=== PATIENT | female | born 1995 | race Caucasian/White ===

== ENCOUNTER → 2018-11-15 | Outpatient (CLI) | payer BC ==
--- NOTE | 2018-11-15 17:40 | REP ---
Clinical: Epigastric and abdominal pain. Technique: Upright view of the chest with supine and upright views of the abdomen and pelvis. Findings: Frontal upright view of the chest demonstrates no acute cardiopulmonary process or free air below the diaphragm to suspect pneumoperitoneum. Supine and upright views of the abdomen and pelvis demonstrate nonspecific bowel gas pattern without obstruction or perforation. No organomegaly. No abnormal calcifications. Skeletal structures normal for age. Impression: Nonspecific bowel gas pattern. Electronically Signed by Juan Daniel Pires MD 11/15/2018 05:31 P
== END ==
LOC: M WUC 16:13
PROVIDERS: ATTEND Physician Assistant
DX: K59.00 Constipation, unspecified (principal)

== ENCOUNTER → 2019-03-16 | Outpatient (REF) | payer BC | LOC: M SFHCCLAY 14:37 | PROVIDERS: ATTEND Family Medicine | DX: N30.90 Cystitis, unspecified without hematuria (principal); R30.0 Dysuria ==

== ENCOUNTER → 2019-08-25 | Outpatient (REF) | payer BC ==
[2019-08-26 14:15] LABS: CHLAMYDIA DNA AMPLIFICATION NEGATIVE (NEGATIVE); GC DNA AMPLIFICATION NEGATIVE (NEGATIVE)
== END ==
LOC: M SFHCCLAY 14:55
PROVIDERS: ATTEND Nurse Practitioner Family
DX: Z12.4 Encounter for screening for malignant neoplasm of cervix (principal)
CPT/HCPCS: 87661; G0123

== ENCOUNTER → 2021-07-30 | Outpatient (REF) | payer BC ==
[2021-07-30 17:34] LABS: GC DNA AMPLIFICATION NEGATIVE (NEGATIVE)
== END ==
LOC: M SFHCCLAY 09:19
PROVIDERS: ATTEND Nurse Practitioner Family
DX: Z12.4 Encounter for screening for malignant neoplasm of cervix (principal)
CPT/HCPCS: 87661; G0123

== ENCOUNTER → 2021-11-11 | Outpatient (CLI) | payer BC ==
[~2021-11-11] MED LIST: ADAP0.05 TOP; CLIN1GEL22 TOP; NITR100C2 PO
== END ==
LOC: M LABSMTC 13:29
PROVIDERS: ATTEND Anesthesiology
DX: Z01.812 Encounter for preprocedural laboratory examination (principal); Z20.822 Contact with and (suspected) exposure to COVID-19

== ENCOUNTER 2021-11-13 06:00 | Day surgery (SDC) | payer BC ==
[~2021-11-13] VITALS: Ht 172.7 cm; Wt 72.6 kg
[2021-11-13] MEDS ORDERED: DIBU28OI2 TOP (08:32)
[2021-11-13 10:24] VITALS: BP 120/63
== END 2021-11-13 10:30 | disposition home or self-care (01) ==
LOC: M SDC 06:00
PROVIDERS: ATTEND Obstetrics & Gynecology
DX: D22.9 Melanocytic nevi, unspecified (principal); K21.9 Gastro-esophageal reflux disease without esophagitis; Z79.899 Other long term (current) drug therapy
CPT/HCPCS: 11420; 36415; 85027; 86850; 86900; 86901; 88305; J0330; J0690; J1100; J1885; J2250; J2370; J2405; J3010

== ENCOUNTER → 2024-06-14 | Outpatient (REF) | payer BC ==
[~2024-06-14] MED LIST changes: +ADAP0.02 TOP; -ADAP0.05 TOP; +DIBU28OI2 TOP
[2024-06-14 17:44] LABS: BASO # 0.1 10^3/uL (0.0-0.2); BASO % 1.3 % (0.0-1.0); EOS # 0.1 10^3/uL (0.0-0.5); EOS % 1.7 % (0.0-3.0); HEMATOCRIT 36.8 % (36.0-47.0); HEMOGLOBIN 13.4 g/dl (12.0-15.5); LYMPH # 2.2 10^3/uL (1.5-5.0); LYMPH % 46.3 % (24.0-44.0); MEAN CORPUSCULAR HEMOGLOBIN 33.4 pg (27.0-33.0); MEAN CORPUSCULAR HGB CONC 36.4 g/dl (32.0-36.5); MEAN CORPUSCULAR VOLUME 91.8 fl (80.0-96.0); MONO # 0.5 10^3/uL (0.0-0.8); MONO % 10.4 % (2.0-8.0); NEUTROPHILS # 1.9 10^3/uL (1.5-8.5); NEUTROPHILS % 40.1 % (36.0-66.0); PLATELET COUNT, AUTOMATED 212 10^3/uL (150-450); RED BLOOD COUNT 4.01 10^6/uL (4.00-5.40); WHITE BLOOD COUNT 4.7 10^3/uL (4.0-10.0)
[2024-06-14 18:03] LABS: Trichomonas vaginalis (AMP) NOT DETECTED (NEGATIVE)
[2024-06-14 18:04] LABS: ALKALINE PHOSPHATASE 72 U/L (46-116); ALT/SGPT 14 U/L (7.0-40); AST/SGOT 12 U/L (<34); BILIRUBIN,TOTAL 0.7 MG/DL (0.3-1.2); BLOOD UREA NITROGEN 10 MG/DL (9-23); CALCIUM LEVEL 9.4 MG/DL (8.5-10.1); CARBON DIOXIDE LEVEL 30 MMOL/L (20-31); CHLORIDE LEVEL 104 MMOL/L (98-107); CREATININE FOR GFR 0.65 MG/DL (0.55-1.30); GLOMERULAR FILTRATION RATE > 60.0 (>60); GLUCOSE, FASTING 91 MG/DL (60-100); IRON (FE) 101 UG/DL (50-170); PERCENT SATURATION 29.5 % (13.2-45.0); SODIUM LEVEL 140 MMOL/L (136-145); TOTAL IRON BINDING CAPACITY 342 UG/DL (250-425); TOTAL PROTEIN 7.2 G/DL (5.7-8.2)
[2024-06-14 18:07] LABS: FREE T4 1.34 NG/DL (0.89-1.76); THYROID STIMULATING HORMONE 1.209 uIU/ML (0.55-4.78)
[2024-06-14 18:26] LABS: GC DNA AMPLIFICATION NEGATIVE (NEGATIVE)
== END ==
LOC: M SFHCCLAY 10:39
PROVIDERS: ATTEND Nurse Practitioner Family
DX: Z01.419 Encounter for gynecological examination (general) (routine) without abnormal findings (principal)

== ENCOUNTER → 2024-08-12 | Outpatient (REF) | payer BC ==
[2024-08-12 13:21] LABS: HCG, SERUM QUALITATIVE POSITIVE (NEGATIVE)
[2024-08-12 13:22] LABS: HCG, SERUM QUANTITATIVE 43631.7 MIU/ML (<4.2)
== END ==
LOC: M SFHCCLAY 07:54
PROVIDERS: ATTEND Physician Assistant
DX: Z32.00 Encounter for pregnancy test, result unknown (principal)

== ENCOUNTER 2025-04-20 19:42 | Emergency (ER) | payer BC ==
[~2025-04-20] VITALS: Ht 172.7 cm; Wt 90.9 kg
[2025-04-20] MEDS: NS (Normal Saline) 0.9% 1,000 ML IV ONE (21:00)
[2025-04-20] MEDS: ACETAMINOPHEN 500 MG TAB PO ONE (21:00)
[2025-04-20 21:29] LABS: BASO # 0.0 10^3/uL (0.0-0.2); BASO % 0.3 % (0.0-1.0); EOS # 0.0 10^3/uL (0.0-0.5); EOS % 0.1 % (0.0-3.0); LYMPH # 1.1 10^3/uL (1.5-5.0); LYMPH % 11.2 % (24.0-44.0); MONO # 0.5 10^3/uL (0.0-0.8); MONO % 4.9 % (2.0-8.0); NEUTROPHILS # 8.4 10^3/uL (1.5-8.5); NEUTROPHILS % 83.1 % (36.0-66.0); PLATELET COUNT, AUTOMATED 310 10^3/uL (150-450)
[2025-04-20 21:30] LABS: ALT/SGPT 26.0 U/L (7.0-40); AST/SGOT 23.0 U/L (<34); CALCIUM LEVEL 8.7 MG/DL (8.5-10.1); CARBON DIOXIDE LEVEL 25.0 MMOL/L (20-31); CHLORIDE LEVEL 102.0 MMOL/L (98-107); CREATININE FOR GFR 0.89 MG/DL (0.55-1.30); GLOMERULAR FILTRATION RATE 89.4 (>60); POTASSIUM SERUM 4.0 MMOL/L (3.5-5.1); SODIUM LEVEL 140.0 MMOL/L (136-145)
[2025-04-20 21:32] LABS: C REACTIVE PROTEIN QUANTITATIV 10.88 MG/DL (<1.0)
[2025-04-20 21:49] LABS: ERYTHROCYTE SEDIMENTATION RATE 59 mm/hr (0-20)
[2025-04-20 22:10] LABS: KETONE, URINE AUTO RFX NEGATIVE (NEGATIVE); MUCUS, URINE RFX SMALL (NEGATIVE); NITRITE, URINE AUTO RFX NEGATIVE (NEGATIVE); RBC, URINE AUTO RFX 0 /HPF (0-3); SQUAM EPITHELIAL CELL UR AURFX 0 /HPF (0-6); WBC, URINE AUTO RFX 1 /HPF (0-3)
[2025-04-20 22:15] LABS: LEUKOCYTE ESTERASE UR AUTO RFX TRACE (NEGATIVE)
[2025-04-20] MEDS: IBUPROFEN 800 MG TAB PO ONE (22:25)
[2025-04-21] MEDS ORDERED: ISOVUE-370 76% 100 ML VIAL As Ordered ONE (00:14)
[2025-04-21 03:00] VITALS: BP 107/65
[2025-04-21 03:15] VITALS: TEMP 97.7; O2SAT 99
[2025-04-26 19:45] LABS: LYME TOTAL ANTIBODY CIA <= 0.90 Index (<=0.90)
== END 2025-04-21 03:25 | disposition home or self-care (01) ==
LOC: M ED 19:42
DX: R50.9 Fever, unspecified (principal); R53.81 Other malaise; R53.83 Other fatigue; N20.0 Calculus of kidney; Z79.899 Other long term (current) drug therapy; Z88.5 Allergy status to narcotic agent
CPT/HCPCS: 71045; 74177; 80048; 80076; 81001; 83605; 85025; 85652; 86140; 86618; 87040; 87088; 87486; 87581; 87633; 87798; 93041; 96360; 99285; Q9967